=== PATIENT | female | born 1985 | race Hispanic/Latino ===

== ENCOUNTER 2018-01-10 08:30 | Outpatient (CLI) | payer OTHER ==
--- NOTE | 2018-01-10 10:29 | Mammography Report ---
Bilateral mammogram and bilateral breast ultrasound: The patient presents with a palpable lump in the upper-outer left breast which she indicates has slightly enlarged. Routine views were obtained with a marker over the area of concern. There is a lobulated circumscribed nodule related to the marker characteristic of a lymph node measuring approximately 11 mm. The left breast pattern is that of intermediate fibroglandular density and not otherwise remarkable. Imaging of the right breast demonstrates a focal asymmetry in the central breast measuring approximately 7 mm. Spot compression imaging demonstrates that it is slightly irregular in contour and relatively linear. Bilateral breast ultrasound demonstrates that in the 12:00 position of right breast there is a small cyst near the skin measuring 5 mm and a similar finding at 2:00 measuring 5.5 mm. In the retroareolar region at 4:00 there is a circumscribed hypodensity with a central echodensity within it having a maximum dimension of 15 mm. Imaging of the left breast in the area of palpable density also demonstrates a circumscribed hypodensity with central hyperdensity which is elongated measuring 1 cm and consistent with a lymph node. The hilum is relatively vascular. CAD used. Impressions: 1. The palpable left breast area is consistent with a benign lymph node. 2. Benign ultrasound findings of the right breast which do not appear to correspond to the probably benign mammographic finding. Recommendations: Repeat right mammogram in 6 months to reevaluate asymmetry. BI-RADS CATEGORY: 3 = Probably benign ACR BI-RADS MAMMOGRAPHIC CODES: 0 = Needs additional imaging evaluation; 1 = Negative; 2 = Benign; 3 = Probably benign; 4 = Suspicious; 5 = Malignant; 6 = Known biopsy-proven malignancy COMMENT: 1. Dense breast tissue, i.e., adenosis, fibrocystic changes, etc., may obscure an underlying neoplasm. 2. Approximately 10% of cancers are not detected with mammography. 3. A negative mammography report should not delay biopsy if a clinically suspicious mass is present.
== END 2018-01-10 08:31 | disposition home or self-care (01) ==
LOC: MAMMO 08:30
PROVIDERS: ATTEND Nurse Practitioner Gerontology
DX: N60.02 Solitary cyst of left breast (principal); N60.01 Solitary cyst of right breast; N64.89 Other specified disorders of breast
CPT/HCPCS: 77066